=== PATIENT | female | born 1990 | race African-American/Black ===

== ENCOUNTER 2019-06-04 09:27 | Emergency (ER) | payer OTHER, SELFPAY ==
[2019-06-04] MEDS ORDERED: CYCLOBENZAPRINE 10 MG TAB ONE (10:15)
[2019-06-04] MEDS ORDERED: CETIRIZINE HCL 5 MG TABLET ONE (10:15)
[2019-06-04] MEDS ORDERED: KETOROLAC 30 MG/ML INJ ONE (10:15)
--- NOTE | 2019-06-04 10:56 | ER ---
Nurse's Notes [facility] Name: Mily Carlson Age: 28 yrs Sex: Female : 1990 Arrival Date: 06/04/2019 Time: 09:30 Bed 17 Private MD: Aron Mas Diagnosis: Torticollis Presentation: 06/04 09:36 Presenting complaint: Patient states: sore throat since yesterday, denies cough, nausea em or fever. Transition of care: patient was not received from another setting of care. Onset of symptoms was June 03, 2019. Risk Assessment: Do you want to hurt yourself or someone else? Patient reports no desire to harm self or others. Initial Sepsis Screen: Does the patient meet any 2 criteria? No. Patient's initial sepsis screen is negative. Does the patient have a suspected source of infection? No. Patient's initial sepsis screen is negative. Care prior to arrival: None. 09:36 Method Of Arrival: Ambulatory em 09:39 Acuity: ADITHYA 4 iw Historical: - Allergies: 09:37 No Known Allergies; em - Home Meds: 09:37 None [Active]; em - PMHx: 09:37 None; em - PSHx: 09:37 None; em - Immunization history:: Flu vaccine is not up to date. - Social history:: Smoking status: Patient/guardian denies using tobacco. - Ebola Screening: : Patient negative for fever greater than or equal to 101.5 degrees Fahrenheit, and additional compatible Ebola Virus Disease symptoms Patient denies exposure to infectious person Patient denies travel to an Ebola-affected area in the 21 days before illness onset No symptoms or risks identified at this time. Screenin:38 Abuse screen: Denies threats or abuse. Nutritional screening: No deficits noted. em Tuberculosis screening: No symptoms or risk factors identified. Fall Risk None identified. Assessment: 09:37 General: Appears in no apparent distress. uncomfortable, Behavior is calm, cooperative, em Denies fever. Pain: Complains of pain in neck Pain currently is 8 out of 10 on a pain scale. Pain began 1 day ago. Neuro: Level of Consciousness is awake, alert, obeys commands, Oriented to person, place, time, situation, Reports difficulty swallowing Denies headache. Cardiovascular: Heart tones S1 S2 present Capillary refill < 3 seconds Patient's skin is warm and dry. Respiratory: Airway is patent Respiratory effort is even, unlabored, Breath sounds are clear bilaterally. Denies cough. GI: Abdomen is flat, Patient currently denies nausea, vomiting. EENT: Oral mucosa is moist. Throat is clear is pink has enlarged tonsils bilaterally Denies nasal congestion, nasal discharge. Derm: Skin is intact, is healthy with good turgor, Skin is pink, warm \T\ dry. Musculoskeletal: Capillary refill < 3 seconds, Range of motion: intact in all extremities. 11:07 Reassessment: Patient appears in no apparent distress at this time. Patient and/or em family updated on plan of care and expected duration. Pain level reassessed. Patient is alert, oriented x 3, equal unlabored respirations, skin warm/dry/pink. rates pain 3/10 Patient states feeling better. Patient states symptoms have improved. Vital Signs: 09:37 BP 130 / 89; Pulse 88; Resp 18; Temp 98.5; Pulse Ox 100% on R/A; Weight 63.5 kg; Height em 5 ft. 2 in. (157.48 cm); Pain 8/10; 11:07 BP 107 / 75; Pulse 66; Resp 16; Pulse Ox 100% on R/A; Pain 3/10; em 09:37 Body Mass Index 25.61 (63.50 kg, 157.48 cm) em ED Course: 09:30 Patient arrived in ED. mr 09:31 Aron Mas MD is Private Physician. mr 09:32 [facility] snw 09:32 Reza Clark MD is Attending Physician. snw 09:32 Marek Dozier LVN is Primary Nurse. em 09:37 Arm band placed on. em 09:38 Patient has correct armband on for positive identification. Bed in low position. Call em light in reach. 09:39 Triage completed. iw 11:07 No provider procedures requiring assistance completed. Patient did not have IV access em during this emergency room visit. Administered Medications: 10:22 Drug: ZyrTEC - Cetirizine 10 mg Route: PO; iw 11:08 Follow up: Response: No adverse reaction; Pain is decreased em 10:22 Drug: Flexeril 10 mg Route: PO; iw 11:08 Follow up: Response: No adverse reaction; Pain is decreased em 10:23 Drug: TORadol 30 mg Route: IM; Site: right deltoid; iw 11:08 Follow up: Response: No adverse reaction; Pain is decreased em Outcome: 10:55 Discharge ordered by MD. herron 11:07 Discharged to home ambulatory, with family. em 11:07 Condition: good 11:07 Discharge instructions given to patient, family, Instructed on discharge instructions, follow up and referral plans. medication usage, Demonstrated understanding of instructions, follow-up care, medications, Prescriptions given X 2. 11:08 Patient left the ED. em Signatures: Lina Dunn, PILOT PLANT TECHNICIAN-C PILOT PLANT TECHNICIAN-Csnw Adore Reid Edgar, PUMP HOUSE ENGINEER PUMP HOUSE ENGINEER em Grecia Carver, RN RN iw
--- NOTE | 2019-06-04 10:56 | EDPHYS ---
Physician Documentation [facility] Name: Mily Carlson Age: 28 yrs Sex: Female : 1990 Arrival Date: 06/04/2019 Time: 09:30 Bed 17 Private MD: Aron Mas ED Physician Reza Clark HPI: 06/04 10:08 This 28 yrs old Black Female presents to ER via Ambulatory with complaints of Sore snw Throat. 10:08 The patient presents with sore throat. The patient describes throat pain as painful snw swallowing. Onset: The symptoms/episode began/occurred suddenly. Severity of symptoms: At their worst the symptoms were moderate. Associated signs and symptoms: Pertinent positives: flu-like symptoms. The patient has not experienced similar symptoms in the past. The patient has not recently seen a physician. Historical: - Allergies: 09:37 No Known Allergies; em - Home Meds: 09:37 None [Active]; em - PMHx: 09:37 None; em - PSHx: 09:37 None; em - Immunization history:: Flu vaccine is not up to date. - Social history:: Smoking status: Patient/guardian denies using tobacco. - Ebola Screening: : Patient negative for fever greater than or equal to 101.5 degrees Fahrenheit, and additional compatible Ebola Virus Disease symptoms Patient denies exposure to infectious person Patient denies travel to an Ebola-affected area in the 21 days before illness onset No symptoms or risks identified at this time. ROS: 10:06 Constitutional: Negative for fever, chills, and weight loss, Eyes: Negative for injury, snw pain, redness, and discharge. 10:06 Neck: Negative for injury, pain, and swelling, Cardiovascular: Negative for chest pain, palpitations, and edema, Respiratory: Negative for shortness of breath, cough, wheezing, and pleuritic chest pain, Abdomen/GI: Negative for abdominal pain, nausea, vomiting, diarrhea, and constipation, Back: Negative for injury and pain, : Negative for injury, bleeding, discharge, and swelling, MS/Extremity: Negative for injury and deformity, + upper back, shoulder pain Skin: Negative for injury, rash, and discoloration, Neuro: Negative for headache, weakness, numbness, tingling, and seizure, Psych: Negative for depression, anxiety, suicide ideation, homicidal ideation, and hallucinations. 10:06 ENT: Positive for sore throat. Exam: 10:06 Head/Face: Normocephalic, atraumatic. Eyes: Pupils equal round and reactive to light, snw extra-ocular motions intact. Lids and lashes normal. Conjunctiva and sclera are non-icteric and not injected. Cornea within normal limits. Periorbital areas with no swelling, redness, or edema. 10:06 Chest/axilla: Normal chest wall appearance and motion. Nontender with no deformity. No lesions are appreciated. Cardiovascular: Regular rate and rhythm with a normal S1 and S2. No gallops, murmurs, or rubs. Normal PMI, no JVD. No pulse deficits. Respiratory: Lungs have equal breath sounds bilaterally, clear to auscultation and percussion. No rales, rhonchi or wheezes noted. No increased work of breathing, no retractions or nasal flaring. Abdomen/GI: Soft, non-tender, with normal bowel sounds. No distension or tympany. No guarding or rebound. No evidence of tenderness throughout. Back: No spinal tenderness. No costovertebral tenderness. Full range of motion. Skin: Warm, dry with normal turgor. Normal color with no rashes, no lesions, and no evidence of cellulitis. MS/ Extremity: Pulses equal, no cyanosis. Neurovascular intact. Full, normal range of motion. Neuro: Awake and alert, GCS 15, oriented to person, place, time, and situation. Cranial nerves II-XII grossly intact. Motor strength 5/5 in all extremities. Sensory grossly intact. Cerebellar exam normal. Normal gait. Psych: Awake, alert, with orientation to person, place and time. Behavior, mood, and affect are within normal limits. 10:06 Constitutional: The patient appears alert, awake, uncomfortable. 10:06 ENT: External ear(s): are unremarkable, Ear canal(s): are normal, TM's: are normal, Nose: is normal, Mouth: is normal, Posterior pharynx: no acute changes, Voice: is normal. 10:06 Neck: External neck: tenderness, that is moderate, holding head erect, resists movement snw in any direction, + muscle spasm.. 11:06 Neck: External neck: improved range of motion. Encouraged hot showers, gentle range of snw motion. Vital Signs: 09:37 BP 130 / 89; Pulse 88; Resp 18; Temp 98.5; Pulse Ox 100% on R/A; Weight 63.5 kg; Height em 5 ft. 2 in. (157.48 cm); Pain 8/10; 11:07 BP 107 / 75; Pulse 66; Resp 16; Pulse Ox 100% on R/A; Pain 3/10; em 09:37 Body Mass Index 25.61 (63.50 kg, 157.48 cm) em MDM: 09:33 Patient medically screened. snw 10:59 Data reviewed: vital signs, nurses notes. Data interpreted: Pulse oximetry: on room air snw is 100 %. Interpretation: normal. Counseling: I had a detailed discussion with the patient and/or guardian regarding: the historical points, exam findings, and any diagnostic results supporting the discharge/admit diagnosis, the presence of at least one elevated blood pressure reading (>120/80) during this emergency department visit, the need for outpatient follow up. Response to treatment: the patient's symptoms have markedly improved after treatment. Special discussion: I have referred the patient to see his PCP for further evaluation of high blood pressure. Based on the history and exam findings, there is no indication for further emergent testing or inpatient evaluation. I discussed with the patient/guardian the need to see the primary care provider for further evaluation of the symptoms. ED course: encouraged to RTED immediately for fever, vomiting, worsening symptoms, concerns. 06/04 09:32 Order name: Strep; Complete Time: 10:06 snw 06/04 09:59 Order name: Throat Culture EDMS Administered Medications: 10:22 Drug: ZyrTEC - Cetirizine 10 mg Route: PO; iw 11:08 Follow up: Response: No adverse reaction; Pain is decreased em 10:22 Drug: Flexeril 10 mg Route: PO; iw 11:08 Follow up: Response: No adverse reaction; Pain is decreased em 10:23 Drug: TORadol 30 mg Route: IM; Site: right deltoid; iw 11:08 Follow up: Response: No adverse reaction; Pain is decreased em Disposition: 11:27 Co-signature as Attending Physician, Reza Clark MD. rn Disposition: 06/04/19 10:55 Discharged to Home. Impression: Torticollis. - Condition is Stable. - Discharge Instructions: Acute Torticollis, Adult, Rehydration, Adult, Heat Therapy, Neck Exercises. - Prescriptions for Cyclobenzaprine 10 mg Oral Tablet - take 1 tablet by ORAL route every 8 hours As needed; 30 tablet. Diclofenac Sodium 75 mg Oral Tablet Sustained Release - take 1 tablet by ORAL route 2 times per day; 30 tablet. - Medication Reconciliation Form, Thank You Letter, Antibiotic Education, Prescription Opioid Use form. - Follow up: Private Physician; When: 1 - 2 days; Reason: Recheck today's complaints, Continuance of care, Re-evaluation by your physician. Follow up: Emergency Department; When: As needed; Reason: Worsening of condition. Signatures: Dispatcher [employer] EDLina Esqueda FNP-C ENERGY EFFICIENCY FINANCE MANAGER-Izaiahw Marek Dozier, AEROSPACE PROJECT ENGINEER AEROSPACE PROJECT ENGINEER em Grecia Carver, MARYANN RN iw Reza Clark MD MD patternmaker helper: (The following items were deleted from the chart) 11:08 10:55 06/04/2019 10:55 Discharged to Home. Impression: Torticollis. Condition is em Stable. Forms are Medication Reconciliation Form, Thank You Letter, Antibiotic Education, Prescription Opioid Use. Follow up: Private Physician; When: 1 - 2 days; Reason: Recheck today's complaints, Continuance of care, Re-evaluation by your physician. Follow up: Emergency Department; When: As needed; Reason: Worsening of condition. snw
== END 2019-06-04 11:08 | disposition home or self-care (01) ==
LOC: ER 09:27
DX: M43.6 Torticollis (principal)
CPT/HCPCS: 87070; 87081; 96372; 99283